=== PATIENT | female | born 1950 | race Caucasian/White ===

== ENCOUNTER → 2018-03-18 | Outpatient (CLI) | payer OTHER ==
[~2018-03-18] MED LIST: ALBU90OI6 INH; ALBU90OI61 INH; ALPR.25 PO; ASCO500 PO; ATEN25; BECL80OI INH; CALC1.25T PO; CONEST.3; DICL25ER PO; FISH1000 PO; GARCINIA CAMBO1 EACH PO; GUAI600T33 PO; HYDACE10B PO; HYDACE5 PO; IBUPROFEN200 MG; LORA10ER PO; MONT10T PO; MORP15ER PO; MULVITMINA PO; OMEP20ER PO; Omeprazole20 M1 PO; PARO20 PO; PEPPERMINT OIL; PRED20 PO; PROBIOTIC1 EAC1 PO; QVAR7.3 G1 IH; RANI150; TRAM50 PO; TRIHYD253B PO; TURMERIC500 M1 PO; VAGIFEM10 MCG VG; VITAMIN D PO; VITAMIN D-32000 UNIT PO; [UNRECOGNIZED DRUG - OTHER] PO
== END | disposition home or self-care (01) ==
LOC: LAB SHORT 14:16 → PLD 14:16
DX: C44.719 Basal cell carcinoma of skin of left lower limb, including hip (principal); C44.619 Basal cell carcinoma of skin of left upper limb, including shoulder
CPT/HCPCS: 88305

== ENCOUNTER 2018-05-30 11:42 | Day surgery (SDC) | payer OTHER ==
[~2018-05-30] VITALS: Ht 167.6 cm; Wt 60.7 kg
[~2018-05-30 11:42] MED LIST changes: +Calcium Carbon500 MG PO; +LETR2.5 PO; +Norco 10-325 T1 EACH PO; +VITAMIN D32000 UNIT PO; +ZOLEDRONIC4 MG/1001 IV
== END 2018-05-30 14:00 | disposition home or self-care (01) ==
LOC: ORSCSDS 11:42
PROVIDERS: Surgery
PROC: 0DBN8ZX Excision of Sigmoid Colon, Via Natural or Artificial Opening Endoscopic, Diagnostic (ICD-10-PCS; principal; 2018-05-30 13:00)
DX: Z12.11 Encounter for screening for malignant neoplasm of colon (principal); D12.5 Benign neoplasm of sigmoid colon; K57.30 Diverticulosis of large intestine without perforation or abscess without bleeding; Z86.010 Personal history of colon polyps; J45.909 Unspecified asthma, uncomplicated; Z79.899 Other long term (current) drug therapy
CPT/HCPCS: 88305; J2704; J7120

== ENCOUNTER → 2019-02-14 | Outpatient (CLI) | payer OTHER ==
[2019-02-20 13:07] LABS: HPV 16 Negative (Negative); HPV 18 Negative (Negative); HPV OTHER HR TYPES Negative (Negative)
== END | disposition home or self-care (01) ==
LOC: LAB SHORT 11:38 → LAB 11:38
PROVIDERS: Obstetrics & Gynecology Gynecology
DX: Z12.72 Encounter for screening for malignant neoplasm of vagina (principal); Z78.9 Other specified health status
CPT/HCPCS: 87624; G0123

== ENCOUNTER → 2019-04-04 | Outpatient (CLI) | payer OTHER | LOC: LAB 13:40 → LAB SHORT 13:40 | DX: L08.9 Local infection of the skin and subcutaneous tissue, unspecified (principal) | CPT/HCPCS: 87070; 87205 ==

== ENCOUNTER → 2020-12-08 | Outpatient (CLI) | payer OTHER | END | disposition home or self-care (01) | LOC: LAB SHORT 11:13 | DX: C44.519 Basal cell carcinoma of skin of other part of trunk (principal) | CPT/HCPCS: 88305 ==

== ENCOUNTER → 2024-03-16 | Outpatient (CLI) | payer OTHER | END | disposition home or self-care (01) | LOC: LAB SHORT 10:36 → LAB 10:36 | DX: J02.9 Acute pharyngitis, unspecified (principal) | CPT/HCPCS: 87081 ==